=== PATIENT | male | born 1950 | race Two or more races ===

== ENCOUNTER 2023-08-11 21:28 | Emergency (ER) | payer OTHER ==
[~2023-08-11] VITALS: Ht 172.7 cm; Wt 73.2 kg
[2023-08-12 01:45] VITALS: BP 139/76; PULSE 72; RESP 18; TEMP 97.8
[2023-08-12] MEDS ORDERED: CIPR500T4 PO (01:48)
[2023-08-12] MEDS: cefTRIAXone SOD 1,000 MG VL IM ONE (02:18)
[2023-08-12 02:19] VITALS: O2SAT 98
== END 2023-08-12 03:26 | disposition home or self-care (01) ==
LOC: ER 21:28
DX: S91.134A Puncture wound without foreign body of right lesser toe(s) without damage to nail, initial encounter (principal); E11.9 Type 2 diabetes mellitus without complications; E78.5 Hyperlipidemia, unspecified; W22.8XXA Striking against or struck by other objects, initial encounter; Y93.89 Activity, other specified; Y92.89 Other specified places as the place of occurrence of the external cause; Y99.8 Other external cause status
CPT/HCPCS: 96372; 99283; J0696